=== PATIENT | male | born 1995 | race African-American/Black ===

== ENCOUNTER 2025-04-12 10:23 | Emergency (ER) | payer MEDICAID ==
[~2025-04-12] VITALS: Ht 175.3 cm; Wt 74.0 kg
[2025-04-12] MEDS: IPRATROPIUM BROMIDE (0.02%) 0.5MG/2.5ML NEB HHN SCH (12:23)
[2025-04-12] MEDS: ALBUTEROL (0.083%) 2.5MG/3ML NEB HHN SCH (12:23)
[2025-04-12 12:25] VITALS: PULSE 55; RESP 18; O2SAT 99
[2025-04-12] MEDS ORDERED: ALBU18HF2 IH (13:14)
[2025-04-12] MEDS ORDERED: IBUP-2029 MT (13:14)
[2025-04-12 13:23] VITALS: BP 132/78; PULSE 89; RESP 18; TEMP 37.1; O2SAT 100
[2025-04-12 13:51] LABS: INFLUENZA TYPE A Presumptive Negative (Pres. Neg.); INFLUENZA TYPE B Presumptive Negative (Pres. Neg.)
[2025-04-12 13:53] LABS: RESPIRATORY SYNCYTIAL VIRUS Not Detected (Not Detectd)
== END 2025-04-12 13:25 | disposition home or self-care (01) ==
LOC: ER 10:23
DX: J45.901 Unspecified asthma with (acute) exacerbation (principal); J06.9 Acute upper respiratory infection, unspecified; B97.89 Other viral agents as the cause of diseases classified elsewhere; Z20.822 Contact with and (suspected) exposure to COVID-19
CPT/HCPCS: 87420; 87804 ×2; 71045; 98960; 94644; 99285; 87426; Z7610 ×2; 94070; 94640; 94664